=== PATIENT | male | born 1955 | race Caucasian/White ===

== ENCOUNTER → 2017-01-03 | Outpatient (CLI) | payer BC ==
[2017-01-03 11:20] LABS: ALT/SGPT 28 U/L (12-78); AST/SGOT 13 U/L (15-37); BLOOD UREA NITROGEN 13 mg/dl (7-18); BUN/CREATININE RATIO 15.8 (10-20); CALCIUM 8.8 mg/dl (8.5-10.1); CARBON DIOXIDE 28 mmol/L (21-32); CHLORIDE 109 mmol/L (98-107); CREATININE 0.83 mg/dl (0.60-1.40); GLUCOSE 88 mg/dl (70-99); POTASSIUM 4.4 mmol/L (3.5-5.1); SODIUM 142 mmol/L (136-145)
[2017-01-03 11:26] LABS: BASO % 0.2 %; BASO ABS # 0.01 K/uL (0-0.2); COMPLETE YES; EOS % 1.8 %; HEMATOCRIT 42.7 % (42-52); IG% 0.2 %; LYMPH % 26.9 %; LYMPH ABS # 1.33 K/uL (1.2-3.4); MEAN CELL VOLUME 93.8 fL (80-100); MEAN CORPUSCULAR HEMOGLOBIN 32.5 pg (25-34); MEAN CORPUSCULAR HGB CONC 34.7 g/dl (32-36); MEAN PLATELET VOLUME 10.9 fL (7.4-10.4); MONO % 6.7 %; NEUT % 64.2 %; PLATELET COUNT 253 K/uL (130-400); RED BLOOD COUNT 4.55 M/uL (4.7-6.1); WHITE BLOOD COUNT 4.94 K/uL (4.8-10.8)
[2017-01-03 11:31] LABS: CHOLESTEROL 167 mg/dl (0-200); CHOLESTEROL/HDL RATIO 3.7; HDL CHOLESTEROL 45 mg/dl; LDL CHOLESTEROL CALCULATED 104 mg/dl; TRIGLYCERIDES 90 mg/dl (0-150); VERY LOW DENSITY LIPOPROT CALC 18 mg/dl
== END | disposition home or self-care (01) ==
LOC: C.LABBC 08:09
DX: I10 Essential (primary) hypertension (principal); E78.5 Hyperlipidemia, unspecified; M19.90 Unspecified osteoarthritis, unspecified site

== ENCOUNTER → 2018-01-03 | Outpatient (CLI) | payer OTHER ==
[2018-01-03 13:18] LABS: BASO % 0.6 %; BASO ABS # 0.03 K/uL (0-0.2); EOS ABS # 0.05 K/uL (0-0.5); HEMATOCRIT 42.4 % (42-52); IG# 0.02 K/uL (0.00-0.02); LYMPH % 27.3 %; LYMPH ABS # 1.35 K/uL (1.2-3.4); MEAN CELL VOLUME 90.4 fL (80-100); MEAN CORPUSCULAR HGB CONC 35.4 g/dl (32-36); MEAN PLATELET VOLUME 10.6 fL (7.4-10.4); MONO % 7.1 %; MONO ABS # 0.35 K/uL (0.11-0.59); NEUT % 63.6 %; NEUT ABS # 3.14 K/uL (1.4-6.5); PLATELET COUNT 254 K/uL (130-400); RED CELL DISTRIBUTION WIDTH CV 12.9 % (11.5-14.5); RED CELL DISTRIBUTION WIDTH SD 42.5 fL (36.4-46.3); WHITE BLOOD COUNT 4.94 K/uL (4.8-10.8)
[2018-01-03 14:25] LABS: ALT/SGPT 31 U/L (12-78); AST/SGOT 20 U/L (15-37); BLOOD UREA NITROGEN 17 mg/dl (7-18); CARBON DIOXIDE 26 mmol/L (21-32); CREATININE 0.84 mg/dl (0.60-1.40); GLUCOSE 93 mg/dl (70-99); POTASSIUM 4.4 mmol/L (3.5-5.1); SODIUM 132 mmol/L (136-145)
[2018-01-03 14:28] LABS: CHOLESTEROL 195 mg/dl (0-200); LDL CHOLESTEROL CALCULATED 120 mg/dl
== END | disposition home or self-care (01) ==
LOC: C.LABBC 11:12
DX: E78.5 Hyperlipidemia, unspecified (principal); I10 Essential (primary) hypertension

== ENCOUNTER → 2018-04-19 | Outpatient (CLI) | payer OTHER | END | disposition home or self-care (01) | LOC: C.CPL 14:15 | PROVIDERS: ATTEND Orthopaedic Surgery | DX: Z01.810 Encounter for preprocedural cardiovascular examination (principal) ==

== ENCOUNTER 2019-05-18 14:08 | Observation (INO) ==
[2019-05-18] MEDS ORDERED: ONDANSETRON INJ 2 MG/ML 2 ML VIAL IV STA (14:34)
[2019-05-18] MEDS ORDERED: SODIUM CHLORIDE 0.9% 1000ML 1,000 ML IV ONE (14:34)
[2019-05-18 15:00] LABS: Hematocrit (blood only) 42.5 % (42-52); Hemoglobin 14.7 g/dL (14.0-18.0); Mean Corpuscular Hemoglobin 30.9 pg (25-34); Mean Corpuscular Hgb Conc 34.6 g/dL (32-36); Mean Corpuscular Volume 89.5 fL (80-100); Mean Platelet Volume 10.2 fL (7.4-10.4); Platelet Count 198 K/uL (130-400); RDW Coefficient of Variation 12.8 % (11.5-14.5); RDW Standard Deviation 42.4 fL (36.4-46.3); Red Blood Count 4.75 M/uL (4.7-6.1); White Blood Count 7.62 K/uL (4.8-10.8)
[2019-05-18 15:15] LABS: Albumin Level 4.1 gm/dl (3.4-5.0); BUN Creatinine Ratio 16.4 (10-20); Calcium 9.2 mg/dl (8.5-10.1); Est GFR (African American) 100.8; Potassium 3.8 mmol/L (3.5-5.1)
[2019-05-18 15:26] LABS: Albumin Globulin Ratio 1.3 (0.9-2); Bilirubin,Total 0.9 mg/dl (0.2-1); Globulin 3.2 gm/dl (2.5-4.0); Thyroid Stimulating Hormone 2.91 uIu/ml (0.300-4.500); Total Protein 7.3 gm/dl (6.4-8.2)
--- NOTE | 2019-05-18 15:37 | CT Scan Report ---
CT OF THE HEAD WITHOUT CONTRAST CLINICAL HISTORY: fall, amnesia COMPARISON STUDY: No previous studies for comparison. CT DOSE: 1061.89 mGy.cm TECHNIQUE: Helical axial images of the head were obtained without IV contrast. Automated exposure con trol was utilized for the study. A dose lowering technique was utilized adhering to the principles o f ALARA. FINDINGS: No acute intracranial hemorrhage, midline shift or mass effect is present. The ventricular system is unremarkable. The basilar cisterns are patent. No extra-axial collections are present. Ther e are no findings to suggest acute dural sinus thrombosis or acute territorial infarct. No significan t calvarial abnormalities are present. Visualized portions of the sinuses and mastoid air cells are c lear. IMPRESSION: 1. No acute intracranial findings. 2. No calvarial fracture. Electronically signed by: Bruce Pinon M.D. 05/18/2019 3:36 PM
--- NOTE | 2019-05-18 15:44 | CT Scan Report ---
CT OF THE CERVICAL SPINE WITHOUT CONTRAST CLINICAL HISTORY: fall, neck pain COMPARISON STUDY: No previous studies for comparison. TECHNIQUE: Helical axial images of the cervical spine were obtained without IV contrast. Sagittal a nd coronal reconstructions were viewed. Automated exposure control was utilized for the study. A do se lowering technique was utilized adhering to the principles of ALARA. FINDINGS: No acute cervical spine fracture is noted. There is moderate to severe disc space narrowing and osteophytosis at C5-C6 and C6-C7. There is severe multilevel facet arthrosis. There is no prever tebral edema. Craniocervical junction is intact. IMPRESSION: 1. No acute cervical spine fracture or subluxation. 2. Severe multilevel facet arthrosis. Moderate to severe disc space narrowing and osteophytosis at C5 -C6 and C6-C7. Electronically signed by: Bruce Pinon M.D. 05/18/2019 3:43 PM
[2019-05-18 16:06] LABS: Appearance Urine Clear (Clear); Bilirubin Urine Negative (Negative); Blood Urine Negative (Negative); Color Urine Yellow; Glucose Urine UA Negative (Negative); Ketones Urine 1+ (Negative); Leukocyte Esterase Urine Negative (Negative); Nitrite Urine Negative (Negative); Protein Urine Negative (Negative); Specific Gravity Urine 1.025 (1.000-1.030); Urobilinogen Urine Negative (Negative)
--- NOTE | 2019-05-18 17:19 | History & Physical Report ---
Date of Service May 18, 2019 Assessment & Plan (1) Stroke-like symptom: Uncertain etiology CVA vs arrhythmia vs TGA vs seizure vs post-concussive syndrome seem most likely CBC, PRP, TSH WNL UA neg CT head/c-spine neg for acute MRI/MRA, ECHO, EEG pending Tele monitor, t/c event monitor if work-up is neg Lyme pending Serial trops pending Neuro c/s pending, case was discussed with Dr. Rueda per ED physician (2) Hyperlipidemia: continue home meds (3) HTN (hypertension): continue home meds (4) DVT prophylaxis: SCDs, ambulation History of Present Illness Primary Care Provider: Dereje Mcdowell Jr, DO 64 y/o M c/o LOC. Pt had been outside trimming trees earlier today. The last thing he remembers was placing the pruning stick against a fence. He feels that this was after 12:30 because he remembered thinking around that time that he would stop for lunch around 1p. Around 1:20, pt's returned home to find pt wandering in the front yard without his glasses and acting confused. He recognized her and called her by name, but he could not tell her what happened to his glasses and was quite dazed to her. She would tell him something and he would ask the same questions repeatedly. He had no issues walking or using his arms, no slurred speech or facial droop. She went into the back yard and found that a stacked wood pile was in disarray that had not been like that prior. She was able to located pt's glasses and ear buds. Pt had abrasions on his arms that he does not remember obtaining. The back of his neck is also quite stiff and sore. Upon arrival to the ED, pt was continuing to have short term memory loss, repeating information and questions to the ED physician. At this point, still feels pt is somewhat dazed but is much better. Pt states he feels a bit "off" but other than the neck pain, cannot quite quantify this. Pt has no prior hx of similar events. Prior to this happening, pt was having a usual day for himself. He had no unusual SOB, lightheadedness, inability to complete tasks, etc. Pt denies fever, chest pain, abd pain, n/v/c/d, LE pain or swelling. Based on the location of the wood pile and pt's fallen glasses and ear buds, pt and feel that he must have fallen and then caught himself between two trees before hitting the ground. He has no signs of head trauma. He does not remember tripping or falling however. Just prior to this, pt had been on an extended ladder in a tree. He states that the ladder was down on the ground and not propped up, so he knows he did not fall from the tree. Allergies Allergy/AdvReac Type Severity Reaction Status Date / Time No Known Allergies Allergy Unverified 05/18/19 14:28 Home Medications Home Medications Medication Instructions Recorded Confirmed Type fexofenadine 180 mg PO DAILY 05/18/19 05/18/19 History lisinopril 5 mg PO QAM 05/18/19 05/18/19 History mometasone [Nasonex] 2 spray INTRANASAL DAILY 05/18/19 05/18/19 History simvastatin 40 mg PO DAILY 05/18/19 05/18/19 History Past Med/Surg History Medical History No significant past medical history Surgical History No significant past surgical history Family History Son Autism Seizure Other No pertinent family history Social History Preferred Language: Mosotho Feels Safe at Home: Yes Smoking Status: Never smoker Hx Alcohol Use: Yes (occasional but none recently) Hx Substance Use: No Review of Systems Review of Systems: Pertinent positives and negatives reviewed in HPI--all others negative Physical Exam Constitutional: WD/WN, vitals as above Eyes: normal visual ron[place] by confrontation and + anicteric sclerae Neck: normal visual inspection and trachea midline Respiratory: normal respiratory effort, lungs clear to auscultation Cardiovascular: Rate/Rhythm: regular rate and regular rhythm Gastrointestinal (Abdomen): Inspection/Auscultation: abdomen not distended Percussion/Palpation: abdomen soft; abdomen nontender Musculoskeletal: Head/Neck/Chest: normocephalic and head atraumatic negative for edema, peripheral pulses intact Skin: superficial abrasions on UE Neurologic: CN's II-XI intact bilaterally and awake; not confused Speech / Cognition: normal speech Psychiatric: A+Ox3, euthymic affect Speech: normal rate/rhythm/volume of speech Thought Process: clear/coherent thought process Retaining information, questions are appropriate, not repeating questions or information Results & Data Vital Signs (Past 12 Hours) Vital Signs Temp Pulse Pulse Resp BP BP Pulse Ox 05/18/19 16:32 98 05/18/19 16:30 145/81 H 99 05/18/19 16:01 81 16 98 05/18/19 16:00 83 17 146/88 H 100 05/18/19 15:39 78 15 124/83 98 05/18/19 15:30 77 21 05/18/19 14:46 77 16 156/95 H 98 05/18/19 14:45 80 19 05/18/19 14:10 36.4 C L 82 20 145/[address] head: neg for acute CT c-spine: neg for acute Code Status & VTE Plan Code Status Full code. Pt states he has a living will as well. VTE Prophylaxis Plan VTE Prophylaxis will be ordered: Yes PG Care Time/CCT Total # of Minutes Spent Total Time Spent with Patient: Total time spent is greater than 50% in coordination of care (as documented) at patient's floor/unit and/or counseling patient:
[2019-05-18] MEDS ORDERED: PHARMACIST DISCHARGE MED REC CONSULT PRN (18:43)
[2019-05-18] MEDS ORDERED: MAGNESIUM HYDROXIDE SUSP 30 ML UDC PO PRN (18:43)
[2019-05-18] MEDS ORDERED: ONDANSETRON INJ 2 MG/ML 2 ML VIAL IV PRN (18:43)
[2019-05-18] MEDS: ACETAMINOPHEN 325 MG TAB PO PRN (19:21)
[2019-05-18 20:04] LABS: Lyme Ab IgG w/WB Rflx Negative (Negative); Lyme Ab IgM w/WB Rflx Negative (Negative)
--- NOTE | 2019-05-18 20:45 | Emergency Department Note ---
Entered by Kisha Patrick acting as a scribe for Jan Barlow MD History of Present Illness General Chief complaint: Altered Mental Status Stated complaint: NEURO SYMPTOMS,POSSIBLE STROKE Time Seen by Provider: 05/18/19 14:23 Source: patient and other () History of Present Illness Onset (ago): hour(s) (this morning) Location: head, left (forearm) and right (forearm) Pain Consistency: + other (episode) Quality: + other (episode of AMS) Associated symptoms: + other (Positive nausea, dry mouth. ); no headaches The patient is a 64 year old male who presents to the ED complaining of an episode of AMS beginning this morning. He is accompanied by his who reports that she had left the house at 0900 and came back at 1320. She states he had a ladder outside lying on the driveway and a pole saw. She reports he was cutting branches from around the driveway and there was a large pile of firewood that was neatly stacked by the tree. She notes that he appears to have fallen into the pile from a standing height and caught himself on the surrounding trees as he has abrasions on his bilateral forearms. She reports his earbuds fell out and his glasses were thrown off his face. She found her standing in the driveway, he was confused. The patient has no memory of these events which is abnormal for him as he has no prior issues with his memory. When asked, he states the last thing he remembers was doing yard work and cutting branches by the wood pile using the extension ladder. He states he has nausea and a dry mouth but denies any headaches. His last tetanus shot was within 10 years. Home Medications Home Medications Medication Instructions Recorded Confirmed Type fexofenadine 180 mg PO DAILY 05/18/19 05/18/19 History lisinopril 5 mg PO QAM 05/18/19 05/18/19 History mometasone [Nasonex] 2 spray INTRANASAL DAILY 05/18/19 05/18/19 History simvastatin 40 mg PO DAILY 05/18/19 05/18/19 History Allergies Allergy/AdvReac Type Severity Reaction Status Date / Time No Known Allergies Allergy Unverified 05/18/19 14:28 Past Med/Surg History Medical History No significant past medical history Surgical History No significant past surgical history Family History Son Autism Seizure Other No pertinent family history Social History Preferred Language: Croatian Communication Ability: Effective Carry All Driver Required: No Beliefs That Will Affect Care: None Current Living Situation: Spouse Feels Safe at Home: Yes Smoking Status: Never smoker Second Hand Exposure: No ; Hx Alcohol Use: Yes Hx Substance Use: No Review of Systems See HPI for pertinent positives & negatives. and A total of 10 systems reviewed and were otherwise negative Physical Exam Vital Signs Vital Signs - 24 hr 05/18/19 14:10 05/18/19 14:44 05/18/19 14:45 Temperature 36.4 C L Temperature Source Oral Sepsis Recent Fever Within 48 Hours No Sepsis New/Unexplained Change in Mental Status No Sepsis Action Taken by Nursing No Action Required Pulse Rate 82 80 Pulse Rate [Apical] Pulse Rate from SpO2 Sensor Pulse Rhythm Regular Pulse Strength Normal Respiratory Rate 20 19 Respiratory Effort / Characteristics Non-Labored Spontaneous Respiratory Depth Normal Respiratory Pattern Regular Blood Pressure 145/88 H Blood Pressure [Right Arm] Blood Pressure Mean 107 Blood Pressure Mean [Right Arm] Blood Pressure Position Sitting Pulse Oximetry 100 Oxygen Delivery Method Room Air Room Air 05/18/19 14:46 05/18/19 15:30 05/18/19 15:39 Temperature Temperature Source Sepsis Recent Fever Within 48 Hours Sepsis New/Unexplained Change in Mental Status Sepsis Action Taken by Nursing Pulse Rate 77 78 Pulse Rate [Apical] 77 Pulse Rate from SpO2 Sensor 77 Pulse Rhythm Pulse Strength Respiratory Rate 16 21 15 Respiratory Effort / Characteristics Respiratory Depth Respiratory Pattern Blood Pressure 124/83 Blood Pressure [Right Arm] 156/95 H Blood Pressure Mean 96 Blood Pressure Mean [Right Arm] 115 Blood Pressure Position Pulse Oximetry 98 98 Oxygen Delivery Method Room Air Room Air 05/18/19 16:00 05/18/19 16:01 05/18/19 16:30 Temperature Temperature Source Sepsis Recent Fever Within 48 Hours Sepsis New/Unexplained Change in Mental Status Sepsis Action Taken by Nursing Pulse Rate 83 81 Pulse Rate [Apical] Pulse Rate from SpO2 Sensor 85 81 83 Pulse Rhythm Pulse Strength Respiratory Rate 17 16 Respiratory Effort / Characteristics Respiratory Depth Respiratory Pattern Blood Pressure 146/88 H 145/81 H Blood Pressure [Right Arm] Blood Pressure Mean 107 102 Blood Pressure Mean [Right Arm] Blood Pressure Position Pulse Oximetry 100 98 99 Oxygen Delivery Method Room Air 05/18/19 16:32 05/18/19 17:00 Temperature Temperature Source Sepsis Recent Fever Within 48 Hours Sepsis New/Unexplained Change in Mental Status Sepsis Action Taken by Nursing Pulse Rate 83 Pulse Rate [Apical] Pulse Rate from SpO2 Sensor 82 81 Pulse Rhythm Pulse Strength Respiratory Rate Respiratory Effort / Characteristics Respiratory Depth Respiratory Pattern Blood Pressure 126/76 Blood Pressure [Right Arm] Blood Pressure Mean 92 Blood Pressure Mean [Right Arm] Blood Pressure Position Pulse Oximetry 98 97 Oxygen Delivery Method Room Air Room Air GENERAL: Patient is in no acute distress. HEENT: No acute trauma, normocephalic atraumatic, mucous membranes moist, no nasal congestion, no scleral icterus. Pupils equal and reactive to light. No scalp hematoma. NECK: No stridor, no adenopathy, no meningismus, trachea is midline. No posterior C spine tenderness. LUNGS: Clear to auscultation bilaterally, no wheeze, no rhonchi, breath sounds equal. HEART: Without murmurs gallops or rubs, regular rate and rhythm. ABDOMEN: Soft, nontender, bowel sounds positive, no hernias, no peritonitis. EXTREMITIES: Abrasions to the forearms and biceps along the medial aspect. No pain to move any joint. No pain to move the joints of the lower extremities NEUROLOGIC: Amnestic of the last several hours. Alert and moves all extremities equally. No speech slur or facial droop. No cerebellar dysfunction or pronator drift. SKIN: No rash, no jaundice, no diaphoresis. Course 1427: Past medical records reviewed. The patient was evaluated in room B2. A complete history and physical exam was performed. 1600: I checked on the patient at this time. His memory is slightly better. His believes he is able to retain things better but he still has hours of lost time from this morning. 1601: Discussed the patient's case with Dr. Rueda, [facility] Neurology. He recommends the patient come in for a workup and MRI. 1609: Discussed the patient's case with Dr. Ella Baker, [facility] Hospitalist. The patient will be evaluated for further management. Administered Medications Acetaminophen (Tylenol) 650 mg PO Q4H PRN PRN Reason: Pain or Fever Stop: 06/17/19 18:42 Last Admin: 05/18/19 19:21 Dose: 650 mg Documented by: [id number] Discontinued Medications Sodium Chloride (Nss 1000ml) 1,000 mls @ 999 mls/hr IV .Q1H1M ONE Stop: 05/18/19 15:34 Last Infusion: 05/18/19 16:06 Dose: 0 mls/hr Documented by: [id number] Admin: 05/18/19 14:50 Dose: 999 mls/hr Documented by: [id number] Ondansetron HCl (Zofran) 4 mg IV NOW STA Stop: 05/18/19 14:35 Last Admin: 05/18/19 16:07 Dose: Not Given Documented by: [id number] Medical Decision Making Differential Diagnosis Differential diagnosis: Etiologies such as concussion, intracranial bleeding, head trauma, dehydration, stroke, electrolyte imbalance, transient global amnesia, as well as others were entertained. Medical Records Attestation: I reviewed the patient's medical records. Home Medications Current Medication List: was personally reviewed by me Laboratory Data Attestation: I reviewed the patient's lab results. Result diagrams: 05/18/19 14:50 05/18/19 14:50 Lab Results 05/18/19 05/18/19 05/18/19 Range/Units 14:50 14:50 15:35 WBC 7.62 (4.8-10.8) K/uL RBC 4.75 (4.7-6.1) M/uL Hgb 14.7 (14.0-18.0) g/dL Hct 42.5 (42-52) % MCV 89.5 (80-100) fL MCH 30.9 (25-34) pg MCHC 34.6 (32-36) g/dL RDW Std Deviation 42.4 (36.4-46.3) fL RDW Coeff of Aidan 12.8 (11.5-14.5) % Plt Count 198 (130-400) K/uL MPV 10.2 (7.4-10.4) fL Sodium 139 (136-145) mmol/L Potassium 3.8 (3.5-5.1) mmol/L Chloride 104 (98-107) mmol/L Carbon Dioxide 23 (21-32) mmol/L Anion Gap 12.0 H (3-11) BUN 15 (7-18) mg/dl Creatinine 0.92 (0.6-1.4) mg/dl Est Cr Clr Drug Dosing 80.0 ml/min Est GFR ( Amer) 100.8 Est GFR (Non-Af Amer) 87.0 BUN/Creatinine Ratio 16.4 (10-20) Glucose 121 H (70-99) mg/dl Calcium 9.2 (8.5-10.1) mg/dl Magnesium 2.0 (1.8-2.4) mg/dl Total Bilirubin 0.9 (0.2-1) mg/dl AST 24 (15-37) U/L ALT 34 (12-78) U/L Alkaline Phosphatase 55 (45-117) U/L Total Protein 7.3 (6.4-8.2) gm/dl Albumin 4.1 (3.4-5.0) gm/dl Globulin 3.2 (2.5-4.0) gm/dl Albumin/Globulin Ratio 1.3 (0.9-2) TSH 2.910 (0.300-4.500) uIu/ml Urine Color Yellow Urine Appearance Clear (Clear) Urine pH 5.0 (4.5-7.5) Ur Specific [place] 1.025 (1.000-1.030) Urine Protein Negative (Negative) Urine Glucose (UA) Negative (Negative) Urine Ketones 1+ H (Negative) Urine Blood Negative (Negative) Urine Nitrite Negative (Negative) Urine Bilirubin Negative (Negative) Urine Urobilinogen Negative (Negative) Ur Leukocyte Esterase Negative (Negative) Imaging Data Radiologist's Impression: Radiology results as stated below per my review and the radiologist's interpretation: CT OF THE CERVICAL SPINE WITHOUT CONTRAST CLINICAL HISTORY: fall, neck pain COMPARISON STUDY: No previous studies for comparison. TECHNIQUE: Helical axial images of the cervical spine were obtained without IV contrast. Sagittal and coronal reconstructions were viewed. Automated exposure control was utilized for the study. A dose lowering technique was utilized adhering to the principles of ALARA. FINDINGS: No acute cervical spine fracture is noted. There is moderate to severe disc space narrowing and osteophytosis at C5-C6 and C6-C7. There is severe multilevel facet arthrosis. There is no prevertebral edema. Craniocervical junction is intact. IMPRESSION: 1. No acute cervical spine fracture or subluxation. 2. Severe multilevel facet arthrosis. Moderate to severe disc space narrowing and osteophytosis at C5-C6 and C6-C7. Electronically signed by: Bruce Pinon M.D. 05/18/2019 3:[address] OF THE HEAD WITHOUT CONTRAST CLINICAL HISTORY: fall, amnesia COMPARISON STUDY: No previous studies for comparison. CT DOSE: 1061.89 mGy.cm TECHNIQUE: Helical axial images of the head were obtained without IV contrast. Automated exposure control was utilized for the study. A dose lowering sumeet hnique was utilized adhering to the principles of ALARA. FINDINGS: No acute intracranial hemorrhage, midline shift or mass effect is present. The ventricular system is unremarkable. The basilar cisterns are patent. No extra-axial collections are present. There are no findings to suggest acute dural sinus thrombosis or acute territorial infarct. No significant calvarial abnormalities are present. Visualized portions of the sinuses and mastoid air cells are clear. IMPRESSION: 1. No acute intracranial findings. 2. No calvarial fracture. Electronically signed by: Bruce Pinon M.D. 05/18/2019 3:36 PM Blood Pressure Blood Pressure Findings: Elevated blood pressure Blood Pressure Disposition: further management by hospitalist MESHA Narrative There is no leukocytosis or concerning anemia. No significant electrolyte abnormality or kidney failure. No liver enzyme elevation. The patient appeared to be in a euthyroid state. EKG showed a sinus rhythm, no acute ischemia. Cardiac enzyme testing x1 was not consistent with acute cardiac injury. Urinalysis did not show evidence for infection. Brain CT showed no acute bleed or mass-effect. C-spine CT showed no acute fracture. On exam, there were no focal neurologic deficits. The patient was amnestic though and initially, could not retain memories. He kept asking the same question over and over. The patient received IV saline, he has been resting comfortably. The patient's condition has improved. He is now able to retain memories. He is not asking the same question over and over. He still though has several hours of lost time. I discussed the case with neurology. A hospital stay and further work-up was warranted. At this point, the cause for the presentation is unclear. Transient global amnesia is a consideration. Seizure is a consideration. Stroke is a consideration. Even dysrhythmia must be considered. Patient and his are aware of all the findings. I spoke with the caser shoe parts. The on-call hospitalist was consulted. Impression & Plan Stroke-like symptom, Confusion, Amnesia, Fall Discharge Plan Visit Data *Final* Discharge Date/Time: 05/18/19 18:22 Chief Complaint: Altered Mental Status Stated Complaint: NEURO SYMPTOMS,POSSIBLE STROKE ED Provider: Jan Barlow Discharge Problem: Stroke-like symptom, Confusion, Amnesia, Fall Patient Disposition: Admitted As Inpatient Discharge Instructions Interventions: ED Discharge Assessment Last Done: 05/18/19 18:22 Discharge Problem: Fall Qualifiers: Encounter type: initial encounter Qualified Code(s): W19.XXXA - Unspecified fall, initial encounter The scribe's documentation has been prepared under my direction and personally reviewed by me in its entirety. I confirm that the note above accurately reflects all work, treatment, procedures, and medical decision making performed by me.
[2019-05-19] MEDS: ACETAMINOPHEN 325 MG TAB PO PRN (01:22)
[2019-05-19] MEDS ORDERED: GADOBUTROL 65ML VIAL IV PRN (02:58)
[2019-05-19 06:43] LABS: Chol HDL Ratio 4; Cholesterol 160 mg/dl (0-200); HDL Cholesterol 38 mg/dl; LDL Cholesterol Calculated 92 mg/dl; Triglycerides 151 mg/dl (0-150); VLDL Cholesterol 30 mg/dl
--- NOTE | 2019-05-19 07:08 | Magnetic Resonance Report ---
MR angio head wo con HISTORY: Mental status change stroke like sx TECHNIQUE: 3-D [id number] MRA of the brain was performed without contrast. COMPARISON STUDY: None. FINDINGS: Visualized intracranial internal carotid arteries, distal vertebral arteries, and basilar a rtery are widely patent. There is no significant stenosis, occlusion, or aneurysm seen within the monik ateral ACAs, MCAs, or business case analyst. IMPRESSION: No significant stenosis, occlusion, or aneurysm within the [place] of [place]. The above report was generated using voice recognition software. It may contain grammatical, syntax or spelling errors. Electronically signed by: Norris Payan M.D. 05/19/2019 7:07 AM
--- NOTE | 2019-05-19 07:11 | Magnetic Resonance Report ---
MR brain wo con HISTORY: Mental status change stroke like sx TECHNIQUE: Multiplanar multisequence MRI of the brain was performed without the use of contrast. COMPARISON STUDY: None. FINDINGS: There are no areas of restricted diffusion to suggest acute infarction. The midline structu res are intact. The paranasal sinuses are clear. The mastoid air cells are clear. The ventricles and sulci are within normal limits for age. There is no mass, hematoma, midline shift. The major vascular flow-voids at the skull base are well maintained. IMPRESSION: No acute intracranial abnormality. Mild chronic small vessel change The above report was generated using voice recognition software. It may contain grammatical, syntax or spelling errors. Electronically signed by: Norris Payan M.D. 05/19/2019 7:10 AM
--- NOTE | 2019-05-19 07:13 | Magnetic Resonance Report ---
MR angio neck wo/w con HISTORY: Mental status change stroke like sx TECHNIQUE: Multiaxial CT angiography of the neck was performed IV contrast: None. All measurements w ere calculated based on NASCET criteria. Maximum intensity projection images were also obtained. A dose lowering technique was utilized adhering to the principles of ALARA. COMPARISON STUDY: None. FINDINGS: The aortic arch and proximal great vessels are widely patent. There is no significant sten osis, occlusion, or dissection identified within the bilateral common carotid, internal carotid, or v ertebral arteries. Mild scattered plaque formation IMPRESSION: No significant stenosis, occlusion, or dissection identified within the carotid or vertebral arteries . Mild scattered plaque formation The above report was generated using voice recognition software. It may contain grammatical, syntax or spelling errors. Electronically signed by: Norris Payan M.D. 05/19/2019 7:12 AM
[2019-05-19 07:14] LABS: Estimated Average Glucose 103 mg/dl; Hemoglobin A1C 5.2 % (4.5-5.6)
--- NOTE | 2019-05-19 08:06 | Electroencephalogram ---
EEG Procedure Note Date of Service May 19, 2019 Start / End Times Start Time: 627 End Time: [address] Baker History 64-year-old with history of syncopal episode, question seizure activity Home Medication List Home Medications Medication Instructions Recorded Confirmed Type fexofenadine 180 mg PO DAILY 05/18/19 05/18/19 History lisinopril 5 mg PO QAM 05/18/19 05/18/19 History mometasone [Nasonex] 2 spray INTRANASAL DAILY 05/18/19 05/18/19 History simvastatin 40 mg PO DAILY 05/18/19 05/18/19 History Inpatient Medication List Acetaminophen (Tylenol) 650 mg PO Q4H PRN PRN Reason: Pain or Fever Stop: 06/17/19 18:42 Last Admin: 05/19/19 01:22 Dose: 650 mg Documented by: [id number] Admin: 05/18/19 19:21 Dose: 650 mg Documented by: [id number] Discontinued Medications Gadobutrol (Gadavist 65ml) 8 ml IV ONCE PRN PRN Reason: Interaction Checking Stop: 05/23/19 02:57 Last Admin: 05/19/19 02:59 Dose: 8 ml Documented by: [id number] Sodium Chloride (Nss 1000ml) 1,000 mls @ 999 mls/hr IV .Q1H1M ONE Stop: 05/18/19 15:34 Last Infusion: 05/18/19 16:06 Dose: 0 mls/hr Documented by: [id number] Admin: 05/18/19 14:50 Dose: 999 mls/hr Documented by: [id number] Ondansetron HCl (Zofran) 4 mg IV NOW STA Stop: 05/18/19 14:35 Last Admin: 05/18/19 16:07 Dose: Not Given Documented by: [id number] Description This is a 21 electrode EEG with a single channel dedicated to limited EKG. The electrodes were placed in accordance with the International 10-20 system. Interpretation The predominant background activity consists of a very well modulated 11 Hz activity, of up to 50 mV in amplitude,seen symmetrically distributed over the posterior head regions bilaterally. This activity attenuates nicely with eye- opening and other alerting procedures. Photic stimulation was performed and elicited no change in the background activity and no abnormal responses were seen. Hyperventilation was not performed. A minimal amount of muscle and movement artifact activity contaminated the recording and did not hinder interpretation to any significant degree. Throughout the waking portion of the recording, no focal abnormalities, abnormal slow activity, or potentially epileptogenic discharges are seen. The patient entered the drowsy state with no further activation. In summary, this EEG was normal during wakefulness and brief periods of drowsiness. No focal abnormalities, potentially epileptogenic discharges, or abnormal slow activity was seen. Clinical Correlation The absence of potentially epileptogenic activity does not exclude a seizure disorder, since interictally, EEGs can be normal. Clinical correlation is required. [facility] EEG Procedure Codes Indication for Procedure (1) Confusion: (2) Amnesia: (3) Syncope and collapse: Neurology Neurology: [id number] EEG include record awake & drowsy
[2019-05-19] MEDS: FEXOFENADINE HCL 180 MG TAB PO SCH ×2 (08:10→08:13)
[2019-05-19] MEDS ORDERED: SIMVASTATIN 40 MG TAB PO SCH (09:00)
[2019-05-19] MEDS ORDERED: FLUTICASONE PROPIONATE NA SPR 16 GM BTL NAE SCH (09:00)
[2019-05-19] MEDS ORDERED: lisinopriL 5 MG TAB PO SCH (09:00)
--- NOTE | 2019-05-19 10:51 | Neurology Consultation ---
Date of Consultation May 19, 2019 Assessment & Plan (1) Amnesia: (2) Confusion: (3) Fall: (4) HTN (hypertension): (5) Hyperlipidemia: Patient had an episode May 18 of poor memory for events/confusion of uncertain etiology. He was out working in the yard and he had abrasions and bruises on his upper extremities. He likely fell, although this cannot be proven. Except for the abrasions and his lack of recall of the events, clinically he has no other significant symptomatology and has no neurologic deficits or focal signs on exam, meningeal signs, or any sign of encephalopathy. His mental status is clear and he is formulating good memory and has good long and short-term memory except for the events around the early afternoon of May 18. Possibilities include fall with minor closed head trauma/concussion resulting in some amnesia (mostly anterograde). A brief secondary seizure (with postictal confusion) cannot be excluded. Alternatively, he may have had some orthostatic (or possibly vagovagal) hypotension resulting in some collapse/fall and had a brief secondary seizure creating the confusion. Imaging studies including CT scans and MRIs have been completely unremarkable with no evidence for cerebral vascular disease or acute finding such as stroke. Laboratory studies are unremarkable as well. He has no signs of infection and he has no history of substance abuse or toxins. EEG was normal as well. Patient has some risk factors for cerebral vascular disease including hypertension and dyslipidemia. Although his blood pressure was elevated on admission it is quite normal now and his lipid profile is largely unremarkable as well. Recommendations: 1. I see no need for additional neurologic testing at this time. 2. Encourage fluids to prevent dehydration/orthostasis 3. Consider 81 mg aspirin tablet daily for stroke/TIA prevention in lieu of his hypertension and dyslipidemia. However, his MRI has minimal old small vessel ischemic disease. 4. Increase activity as able 5. I can follow up as an outpatient if desired. Otherwise, I have no further treatment recommendations and please contact me if I can be of further assistance. Overall, I spent a total of 110 minutes with this case including review of records, review of MRI films, direct evaluation the patient at bedside, and discussion of the case with the patient at bedside, his RN, and Dr. Carl, including differential diagnosis and treatment options. History of Present Illness Reason for Consultation: Patient is a 64-year-old, who I was asked to see the request of Dr. Baker, for neurologic consultation regarding acute memory issues with fall. Requesting Physician: Dr. Baker Attending Physician: Nikhil Carl MD History of Present Illness Patient has a history of hypertension and dyslipidemia controlled with lisinopril and simvastatin. He was in his usual state of excellent when he when in the yard to cut branches and do other yard work on May 18. He remember starting around 10 o'clock in the morning he apparently had cut several branches (and recalls this), cutting and stacking them for firewood. At 1 point on the 4th branch which was a little bigger and required a rope to help hold it, does not remember what happened. The pole saw was there next to the tree and he does not remember much thereafter until his found little after 1 o'clock in the afternoon. Apparently he was standing in the driveway looking confused. He had abrasions bruises his arms bilaterally and his right hand/wrist was sore (he is to he landed on arm/hand). He ride to the emergency room May 18 at 1410, with a temperature of 36.4, pulse of 82 and regular, blood pressure 140 fiber radiate, and O2 saturation 100%. He was described as having amnesia with trouble recalling events that it just happened, but he had no focal neurologic signs, meningeal signs, or acute encephalopathy. He had a sore posterior neck but he has a history of neck pain intermittently and this increases with activity. He sees a chiropractor who helps. The patient had a typical tension-type bioccipital sharp headache in the emergency room. He says he gets these intermittently as well. He had no scalp tenderness, bruising on his head or tender spots. CBC was unremarkable. Chem profile was remarkable for glucose of 121 with a hemoglobin A1c of 5.2. Urinalysis, TSH, and Lyme antibody titers were unremarkable. Triglycerides were 151, total cholesterol 160, HDL 38, LDL 92. CT scan of head was unremarkable. CT scan of the cervical spine showed some degenerative changes at C5-6 and C6-7 but was otherwise unremarkable. MR angiography of the head and neck were unremarkable with no significant stenoses or vascular anomalies. MRI of the brain was unremarkable. There was no acute change. There was minimal old small vessel ischemic change only. EEG this morning was quite normal during wakefulness and drowsiness. Patient did well and this morning blood pressure is 107/66. He still has vague memories of events of yesterday but has made good memory since and is doing well with no symptoms. Allergies Allergy/AdvReac Type Severity Reaction Status Date / Time No Known Allergies Allergy Unverified 05/18/19 14:28 Home Medications Home Medications Medication Instructions Recorded Confirmed Type fexofenadine 180 mg PO DAILY 05/18/19 05/18/19 History lisinopril 5 mg PO QAM 05/18/19 05/18/19 History mometasone [Nasonex] 2 spray INTRANASAL DAILY 05/18/19 05/18/19 History simvastatin 40 mg PO DAILY 05/18/19 05/18/19 History Patient History Medical History BPH (benign prostatic hyperplasia) Dyslipidemia Glaucoma Hypertension No significant past medical history Surgical History No significant past surgical history S/P cataract surgery Family History Son Autism Seizure Mother , age 93 was COPD. 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 Feels Safe at Home: Yes Smoking Status: Never smoker Second Hand Exposure: No ; Hx Alcohol Use: Yes Hx Substance Use: No Review of Systems Constitutional: no fever, no fatigue and no weakness Eyes: no diplopia, no eye pain and no worsening vision Ear, Nose, Mouth, Throat: no ear pain, no tinnitus, no hearing loss, no dizziness, no snoring, no hoarseness and no dysphagia Respiratory: no cough and no dyspnea Cardiovascular: no chest pain, no palpitations and no lightheadedness Gastrointestinal: no abdominal pain, no nausea and no vomiting Musculoskeletal: + neck pain; no back pain, no radicular pain, no joint pain and no myalgia Integumentary: no rash and no lesions Neurologic: + memory loss; no gait abnormality, no localized weakness, no generalized weakness, no tingling, no numbness, no tremor(s), no abnormal movements, no headache(s), no abnormal speech and no confusion Psychiatric: no depression, no irritability, no anxiety, no difficulty concentrating, no confusion and no hallucinations Endocrine: no fatigue and no flushing Hematologic / Lymphatic: no easy bleeding and no easy bruising Allergy / Immunological: no urticaria and no problem reported Physical Exam Physical Exam: The patient is right-handed. The patient is awake, alert, and attentive. Speech is normal without any aphasia or dysarthria. She can name objects, repeat phrases, and has normal spontaneous speech. Mentation and thought processes are intact, with orientation to person, place and time, and normal fund of knowledge. Attention and concentration are normal. Mood and affect are normal and appropriate. General appearance and grooming are normal. Short and long-term memory are intact, except for the lack of recall of events prior to coming to the emergency room after he fell. The discs are sharp with positive venous pulsations bilaterally. There are no exudates, hemorrhages, or blood vessel changes seen. Pupils are 4 mm bilaterally and reactive to light. Extraocular eye muscles are intact without nystagmus. Visual acuity and visual ronquillo seem normal grossly to confrontation. There are no deficits to sensation in the face in all 3 distributions of the fifth cranial nerve bilaterally. Corneal reflexes are positive bilaterally. Facial strength and symmetry was normal bilaterally. Hearing seems normal to whisper and finger rub bilaterally. Palate moves well without asymmetry. There is normal sternocleidomastoid and trapezius (shoulder shrug) strength bilaterally. Tongue is midline with good strength bilaterally. Neck has a full range of motion without discomfort. There are no cervical bruits bilaterally. There are no cranial or ocular bruits. Heart is without murmur. There is a regular rhythm and rate. Cervical, thoracic, and lumbar spine are nontender to palpation. Gait is narrow based, with good arm swing, turns, and stance. Balance is normal eyes open or closed. Patient has good balance hands on hips holding up 1 leg or the other. With outstretched arms there is no drift. There are no resting, postural, or action tremors. There is no ataxia with finger to nose testing. There is good facility in the hands. No other abnormal involuntary movements are noted. Motor strength is 5/5 diffusely in the arms bilaterally including deltoids, biceps, triceps, brachioradialis, wrist flexors and extensors, street light servicer, and intrinsic hand muscles. Motor strength is 5/5 diffusely in the legs bilaterally including hip flexors, quadriceps, hamstrings, gastrocnemius, tibialis anterior, tibialis posterior, and Peroneii muscles. Toe extensors are normal and there is good bulk in the extensor digitorum brevis muscles bilaterally. The limbs have good tone without rigidity or spasticity. There is no atrophy no joey in the muscles. Muscle bulk is normal, there is no tenderness to palpation, no myotonia to percussion, and no fasciculations seen. Sensory examination is intact to touch and pin throughout all 4 limbs diffusely. Reflexes are 2/4 in the biceps, triceps, brachioradialis, quadriceps, and Achilles tendons bilaterally. There is no clonus bilaterally. Toes are downgoing with plantar stimulation bilaterally. Peripheral pulses are present and of normal quality distally in all 4 limbs. There is no peripheral edema noted in the limbs. Results & Data Vital Signs (Past 12 Hours) Vital Signs Temp Pulse Pulse Resp BP Pulse Ox 05/19/19 08:00 68 05/19/19 07:30 37.4 C 72 16 107/66 95 05/19/19 05:18 36.7 C 68 18 118/74 98 05/19/19 00:23 68 05/18/19 23:07 36.8 C 63 112/70 98 Diagnostic Findings MR brain wo con HISTORY: Mental status change stroke like sx TECHNIQUE: Multiplanar multisequence MRI of the brain was performed without the use of contrast. COMPARISON STUDY: None. FINDINGS: There are no areas of restricted diffusion to suggest acute infarction. The midline structures are intact. The paranasal sinuses are clear. The mastoid air cells are clear. The ventricles and sulci are within normal limits for age. There is no mass, hematoma, midline shift. The major vascular flow-voids at the skull base are well maintained. IMPRESSION: No acute intracranial abnormality. Mild chronic small vessel change The above report was generated using voice recognition software. It may contain grammatical, syntax or spelling errors. Electronically signed by: Norris Payan M.D. 05/19/2019 7:10 AM PG Care Time/CCT Total # of Minutes Spent Total Time Spent with Patient: Total time spent is greater than 50% in coordination of care (as documented) at patient's floor/unit and/or counseling patient: (1) Fall Encounter type: initial encounter Qualified Code(s): W19.XXXA - Unspecified fall, initial encounter
[2019-05-19 12:12] VITALS: PULSE 82; TEMP 99.1; O2SAT 96
[2019-05-19] MEDS ORDERED: STROKE PATIENT DISCHARGE STA (14:28)
[2019-05-19 14:48] VITALS: BP 131/77
--- NOTE | 2019-05-19 17:51 | Discharge Summary ---
Date of Service May 19, 2019 Admission HPI Per Admitting Provider 64 y/o M c/o LOC. Pt had been outside trimming trees earlier today. The last thing he remembers was placing the pruning stick against a fence. He feels that this was after 12:30 because he remembered thinking around that time that he would stop for lunch around 1p. Around 1:20, pt's returned home to find pt wandering in the front yard without his glasses and acting confused. He recognized her and called her by name, but he could not tell her what happened to his glasses and was quite dazed to her. She would tell him something and he would ask the same questions repeatedly. He had no issues walking or using his arms, no slurred speech or facial droop. She went into the back yard and found that a stacked wood pile was in disarray that had not been like that prior. She was able to located pt's glasses and ear buds. Pt had abrasions on his arms that he does not remember obtaining. The back of his neck is also quite stiff and sore. Upon arrival to the ED, pt was continuing to have short term memory loss, repeating information and questions to the ED physician. At this point, still feels pt is somewhat dazed but is much better. Pt states he feels a bit "off" but other than the neck pain, cannot quite quantify this. Pt has no prior hx of similar events. Prior to this happening, pt was having a usual day for himself. He had no unusual SOB, lightheadedness, inability to complete tasks, e tc. Pt denies fever, chest pain, abd pain, n/v/c/d, LE pain or swelling. Based on the location of the wood pile and pt's fallen glasses and ear buds, pt and feel that he must have fallen and then caught himself between two trees before hitting the ground. He has no signs of head trauma. He does not remember tripping or falling however. Just prior to this, pt had been on an extended ladder in a tree. He states that the ladder was down on the ground and not propped up, so he knows he did not fall from the tree. Principal Diagnosis Syncope with memory loss. Possibly a concussion. Discharge Exam Constitutional WD/WN, vitals as above Eyes normal visual ronquillo by confrontation and + anicteric sclerae Neck normal visual inspection and trachea midline Respiratory normal respiratory effort, lungs clear to auscultation Cardiovascular Rate/Rhythm: regular rate and regular rhythm Gastrointestinal (Abdomen) Inspection/Auscultation: abdomen not distended Percussion/Palpation: abdomen soft; abdomen nontender Musculoskeletal Head/Neck/Chest: normocephalic and head atraumatic Neurologic CN's II-XI intact bilaterally and awake; not confused Speech / Cognition: normal speech Psychiatric A+Ox3, euthymic affect Speech: normal rate/rhythm/volume of speech Thought Process: clear/coherent thought process Discharge Data Allergies Allergy/AdvReac Type Severity Reaction Status Date / Time No Known Allergies Allergy Unverified 05/18/19 14:28 Consultations 05/18/19 16:12 ED Decision to Admit Stat 05/18/19 18:43 Consult Neurology Routine Ordered Studies 05/18/19 14:34 CT cervical spine wo con Stat CT head/brain wo con Stat 05/19/19 01:25 MR angio head wo con Urgent 05/19/19 01:26 MR angio neck wo/w con Routine MR brain wo con Routine Hospital Course (1) Stroke-like symptom: Uncertain etiology. Possibly a fall (mechanical or possibly a vasovagal) that may have lead to a concussion. Other possibility is an arrhythmia, though this seems less likely with the confusion. - MRI was without a stroke; EEG did not show epileptiform discharges. - Telemetry did not show arrhythmia. Troponins were all negative. - Could benefit from a Holter monitor as an outpatient. Will work with PCP to saima. (2) Hyperlipidemia: continue home meds (3) HTN (hypertension): continue home meds (4) DVT prophylaxis: SCDs, ambulation Total Time Total Time Spent Total Time Spent (In Minutes): 35 Total Time Includes: Examination of the Patient and Communication With Other Providers Discharge Plan Discharge Items Patient Disposition: Home - Self-Care Reason For Visit: SYNCOPE Discharge Diagnosis: Loss of consciousness, possible concussion. Activity: Resume your previous activity Non-emergency contact: Primary Care Provider and Neurologist Call non-emergency contact if: your symptoms worsen Follow-up/Referrals: João Russo III, MD [Physician] - 09/01/19 10:00 am (Please, follow up at [facility] Neurology Office with Dr. Russo's executive sales assistant, Jeannette Mancuso PA-C, on SundaySeptember 01 at 10:00 am. *The office is located at [facility] in [place]. If you need to change this appointment, call the office at [phone]. Your name will be added to a cancellation list. If a sooner appointment becomes available, someone from this office will call you.) Dereje Mcdowell Jr, DO [Primary Care Provider] - 05/26/19 11:00 am (Please, follow up with Dr. Mcdowell on SundayMay 26 at 11:00 am. *If you need to change this appointment, call the office at [phone].) Diet: Regular Addtl Attending Provider Instructions: Mr. Lowe, You were admitted for a loss of consciousness with no memory of what happened. We are worried you possibly got a concussion or possibly even had a small seizure which caused the confusion after your fall. We did not see any issues with your heart or brain during this admission. We did an echo (ultrasound of the heart) which was normal and a normal MRI of your brain. We also did an EEG to read your brain waves which was normal as well. Please work with Dr. Mcdowell to consider doing a Holter monitor to monitor your heart rhythm over a 1-[address] Mcdowell or return to the hospital if this happens again. Drink plenty of fluids to be sure this wasn't caused by dehydration and passing out. Pending Studies at Discharge: No Stand-Alone Forms: My [facility] Medications and DC Order Prescriptions: Continued fexofenadine 180 mg Tablet 180 mg PO DAILY RF: 0 simvastatin 40 mg Tablet 40 mg PO DAILY RF: 0 mometasone [Nasonex] 50 mcg/actuation [place],Non-Aerosol 2 spray INTRANASAL DAILY RF: 0 lisinopril 5 mg Tablet 5 mg PO QAM RF: 0 Discharge Orders: Discharge Order (Routine); Ordered 05/19/19 Ordered By: Nikhil Carl Admission Data Admit Date/Time: 05/18/19 17:07 Attending Provider: Nikhil Carl Admit Provider: Ella Baker Primary Care Provider: Dereje Mcdowell Jr Other Providers: Ella Baker ; Trung Rueda. Other Interventions: Discharge Summary Assessment (RN) Last Done: 05/19/19 14:45 DC Date/Time DO NOT enter until pt leaves facility: 05/19/19 15:01
== END 2019-05-19 15:01 | disposition home or self-care (01) ==
LOC: ED 14:08 → 2S 14:08 → SUATTDRO 17:07 → 2S 18:22